=== PATIENT | male | born 1975 | race Caucasian/White ===

== ENCOUNTER 2018-03-05 16:40 | Inpatient (IN) ==
--- NOTE | 2018-03-05 16:59 | EKG Report ---
Test Performed on : 03/05/2018 4:46:43 PM Test Reason : chest pain Blood Pressure : / mmHG Vent. Rate : 083 BPM Atrial Rate : 083 BPM P-R Int : 116 ms QRS Dur : 090 ms QT Int : 366 ms P-R-T Axes : 063 057 056 degrees QTc Int : 430 ms Normal sinus rhythm. Normal ECG No previous ECGs available Unconfirmed Result
[2018-03-05 17:07] LABS: BASO# 0.04 X1000 (0.0-0.2); BASO% 0.6 % (0.0-0.8); EOS# 0.08 X1000 (0.0-0.7); EOS% 1.1 % (0.0-10.0); HEMATOCRIT 45.2 % (42.0-52.0); HEMOGLOBIN 15.8 g/dL (14.0-18.0); IMM GRAN# 0.01 X1000 (0.0-0.04); IMM GRAN% 0.1 % (0.0-0.5); LYMPH# 2.19 X1000 (1.2-3.4); LYMPH% 31.1 % (20.5-51.1); MCH 30.3 PG (27-31); MCV 86.6 FL (81-99); MONO% 9.9 % (1.7-9.3); MPV 11.3 FL (7.4-10.4); NEUT# 4.02 X1000 (1.4-6.5); NEUT% 57.2 % (42.2-75.2); PLT 258 X1000 (130-400); RBC 5.22 XMIL (4.7-6.1); RDW 13.1 % (11.5-14.5); WBC 7.04 X1000 (4.8-10.8)
[2018-03-05 17:20] LABS: AGAP 14; ALBUMIN 4.2 g/dL (3.5-5.0); ALKALINE PHOSPHATASE 79 U/L (32-122); BUN 10 mg/dL (8-22); CALCIUM 8.9 mg/dL (8.8-10.2); CHLORIDE 98 mmol/L (98-107); COSMO 276; CREATININE 0.8 mg/dL (0.7-1.2); ESTIMATED GFR > 60; GLUCOSE 127 mg/dL (70-104); GOT 17 U/L (10-34); GPT 20 U/L (10-44); SODIUM 138 mmol/L (136-145); TCO2 26 mmol/L (25-35); TOTAL PROTEIN 7.3 g/dL (6.3-8.3)
--- NOTE | 2018-03-05 17:20 | Diag Imaging Result Doc PS360 ---
CHEST-2 VIEWS - 03/05/2018 INDICATION: chest pain COMPARISON: None FINDINGS: Lungs are hyperexpanded suggesting COPD. There are calcified granulomas in hilar lymph nodes bilaterally. There is a small right pneumothorax at the lung apex. This measures about 1.8 cm, about 10-20%. IMPRESSION: Small right pneumothorax. This report was discussed with Dr. Davis on 03/05/2018 at 5:18 PM and was readback. Electronically signed by Bernard Walsh 03/05/2018 5:18 PM
--- NOTE | 2018-03-05 17:38 | ED EKG INTERP ---
This chart was entered by Mila Romero Scribe, acting as scribe for Vito Davis MD. EKG Interpretation - EKG Time of EKG reading by physician:: 16:47 EKG Read and Signed by:: Vito Davis EKG Interpretation (*Must complete 3 of following elements*): Normal Rate: 83 Rhythm: Normal sinus rhythm [place]: normal QRS: normal Attestation - Physician/ DWIGHT Attestation Patient care was provided by Advanced Practice Provider:: Yes Advanced Practice Provider:: [place] Green Advanced Practice Provider documentation review:: The Mid-level provider documentation, treatment plan and medical decision making was reviewed by the physician who agrees with all treatment and medical decision making by the MLP. The physician spent face to face time with patient:: No Advanced Practice Provider documentation review:: Supervising physician onsite and consulted in the evaluation and care of this patient. The physician did not have a face to face encounter with the patient. This chart was documented by the indicated scribe, (Mila Romero Scribe) and accurately reflects the services I performed and decisions made by me, Vito Davis MD, as attested by the provider's signature.
--- NOTE | 2018-03-05 17:42 | PROVIDER DOCUMENTATION ---
HPI-Respiratory General - General Chief Complaint: Chest Pain Stated Complaint: CHEST PAIN Time Seen by Provider: 03/05/18 17:08 Source: patient Allergies/Adverse Reactions: Patient Allergies Allergy/AdvReac Type Severity Reaction Status Date / Time No Known Allergies Allergy Verified 03/05/18 16:49 Home Medications: Home Medication List Medication Instructions Recorded Confirmed Last Taken Type NK [No Home Medications] 03/05/18 03/05/18 Unknown History - History of Present Illness-Resp Nature of Presenting Problem: pt is 42 yo WM w c/o sudden onset rt side chest pain radiating around to back with sudden onset after standing, pt has diminished lung sounds on rt side and describes pain as severe and worse with deep inspiration, pt O2 sat is 100 % on 2L per NC upon assessment, pt denies prior pneumothorax ro any other chronic medical problems, pt is a smoker w/ thin build Severity in ED: reports: moderate Onset/Duration: reports: 1-3 hours ago Timing: reports: still present Cough Quality/Degree: reports: no cough Episode Frequency: no prior episodes Current Respiratory Medication Therapy: Initiated none Modifying Factors: improves with: deep breath Associated Symptoms: reports: shortness of breath Similar Symptoms Previously?: No Recently seen or treated by another doctor?: No Review of Systems - Adult - REVIEW OF SYSTEMS - ADULT Constitutional: reports: no symptoms reported Eyes: reports: no symptoms reported Ears, Nose, Mouth & Throat: reports: other (congestion for past few days) Cardiovascular: reports: no symptoms reported Respiratory: reports: see HPI Gastrointestinal: reports: no symptoms reported Genitourinary: reports: no symptoms reported Musculoskeletal: reports: no symptoms reported Integumentary: reports: no symptoms reported Neurological: reports: no symptoms reported Psychiatric: reports: no symptoms reported Endocrine: reports: no symptoms reported Hematologic/Lymphatic: reports: no symptoms reported Allergic/Immunologic: reports: no symptoms reported All Other Systems: Reviewed and Negative Past History - Adult - PAST MEDICAL HISTORY-ADULT Review of Records: reports: Nursing Assessment Review, Medications Reviewed, Social history reviewed & non-contributory. 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 on dangers of tobacco.: Discussed manners to quit use, and f/u contacts for add'l counseling. Substance Use: none/never Living Situation: family Physical Exam-General - PHYSICAL EXAM-ADULT Initial Vital Signs Reviewed: Yes - CONSTITUTIONAL General Appearance: appears well, alert, moderate distress - EYES Eyes: PERRL/EOMI, pink conjunctivae. negative: anisocoria, photophobia, sclera injected, scleral icterus - HEAD, EARS, NOSE, MOUTH & THROAT HENMT: normocephalic/atraumatic, moist mucous membranes, normal ENT inspection - NECK Neck: non-tender, full range of motion, supple. negative: carotid bruit, C- spine tenderness - RESPIRATORY Respiratory: chest non-tender, pain on inspiration, other (diminished on rt side ) - CARDIOVASCULAR Cardiovascular: normal peripheral pulses, regular rate, rhythm, no edema, no gallop, no JVD, no murmur - GASTROINTESTINAL (ABDOMEN) Abdominal Exam: normal bowel sounds, non tender, soft. negative: hernia, mass, hepatomegaly - LYMPHATIC Lymphatic: no adenopathy - MUSCULOSKELETAL Back Exam: normal inspection, no CVA tenderness Extremity: normal range of motion, non-tender, normal gait, normal inspection, no pedal edema, no calf tenderness, normal capillary refill - SKIN Integumentary: normal color, normal turgor, warm/dry - NEUROLOGIC Neurologic: grossly normal, no motor/sensory deficits - PSYCHIATRIC Psych/Mental Status: normal mood/affect, normal thought content, normal thought process, oriented x 3 Progress - PLAN OF CARE/RESULTS Progress/Plan/Lab Results: Vital Signs - 8 hr 03/05/18 16:41 Temperature 98.2 F Pulse Rate 104 H Respiratory Rate 20 Blood Pressure 139/84 O2 Sat by Pulse Oximetry 97 Laboratory Results - last 24 hr 03/05/18 03/05/18 03/05/18 16:55 16:55 16:55 WBC 7.04 RBC 5.22 Hgb 15.8 Hct 45.2 MCV 86.6 MCH 30.3 MCHC 35.0 RDW Std Deviation 13.1 Plt Count 258 MPV 11.3 H Immature Gran % (Auto) 0.1 Neut % (Auto) 57.2 Lymph % (Auto) 31.1 [place] % (Auto) 9.9 H Eos % (Auto) 1.1 Baso % (Auto) 0.6 Immature Gran # (Auto) 0.01 Neut # (Auto) 4.02 Lymph # (Auto) 2.19 Howell # (Auto) 0.70 H Eos # (Auto) 0.08 Baso # (Auto) 0.04 Sodium Potassium Chloride Carbon Dioxide Anion Gap BUN Creatinine Estimated GFR/1.73 m2 BUN/Creatinine Ratio Glucose Calculated Osmolality Calcium Total Bilirubin AST ALT Alkaline Phosphatase Creatine Kinase 73 Troponin T < 0.010 Total Protein Albumin Globulin Albumin/Globulin Ratio 03/05/18 16:55 WBC RBC Hgb Hct MCV MCH MCHC RDW Std Deviation Plt Count MPV Immature Gran % (Auto) Neut % (Auto) Lymph % (Auto) [place] % (Auto) Eos % (Auto) Baso % (Auto) Immature Gran # (Auto) Neut # (Auto) Lymph # (Auto) [place]ell # (Auto) Eos # (Auto) Baso # (Auto) Sodium 138 Potassium 4.0 Chloride 98 Carbon Dioxide 26 Anion Gap 14 BUN 10 Creatinine 0.8 Estimated GFR/1.73 m2 > 60 BUN/Creatinine Ratio 13 Glucose 127 H Calculated Osmolality 276 Calcium 8.9 Total Bilirubin 0.90 AST 17 ALT 20 Alkaline Phosphatase 79 Creatine Kinase Troponin T Total Protein 7.3 Albumin 4.2 Globulin 3.0 Albumin/Globulin Ratio 1.0 Orders Category Date Time Status Cardiac Monitoring DIRECTED Care 03/05/18 16:50 Active If abnormal EKG, order: NOW Care 03/05/18 16:49 Active Saline Loc NOW Care 03/05/18 16:51 Active CHEST-2 VIEWS [RAD] Stat Exams 03/05/18 16:49 Completed CBC WITH DIFF [HEME] Stat Lab 03/05/18 16:55 Completed CK PROFILE [SP CHEM] Stat Lab 03/05/18 16:55 Completed CMP [COMPREHENSIVE METABOLIC PANEL] [CHEM] Stat Lab 03/05/18 16:55 Completed TROPONIN T Stat Lab 03/05/18 16:55 Completed CP/Palp <45 No Known Cardiac Hx Stat Oth 03/05/18 16:49 Ordered EKG [EKG] Stat Ther 03/05/18 16:49 Draft discussed with patient the POC including admission to floor with Dr. avalos consult, pt agreed with POC and verbalized understanding Result Diagrams: 03/05/18 16:55 03/05/18 16:55 - XRAY 1 XRAY Study: Chest Impression: Abnormal Comparison with other Films: no prior study XRAY Interpretation: rt side pnumothorax - CONSULTS/PCP/HOSPITALIST Notification #1 *Consult/PCP/Hospitalist*: Dr. Olea Time Discussed: 17:46 Reason/Comments: admit for surgical consult for pneumothorax Consult Disposition: Admit Departure - Departure Date of Disposition Decision: 03/05/18 Time of Disposition Decision: 17:46 DIAGNOSIS: Pneumothorax Disposition: ADMITTED INPATIENT 09 Certified Medical Emergency: Emergent Condition: Stable - Critical Care Note This patient required my direct & personal management of CC.: No Attestation - Physician/ DWIGHT Attestation Patient care was provided by Advanced Practice Provider:: Yes Advanced Practice Provider:: Cam[place] Green Advanced Practice Provider documentation review:: The Mid-level provider documentation, treatment plan and medical decision making was reviewed by the physician who agrees with all treatment and medical decision making by the MLP. The physician spent face to face time with patient:: Yes (Dr flores assessed patient as well as myself) Advanced Practice Provider documentation review:: Supervising physician onsite and consulted in the evaluation and care of this patient. The physician did have a face to face encounter with the patient.
[2018-03-05] MEDS ORDERED: MORPHINE IV ONE ×2 (17:48→20:33)
[2018-03-05] MEDS ORDERED: ZOFRAN IV ONE (17:48)
[2018-03-05] MEDS ORDERED: ZOFRAN IV PRN (18:49)
--- NOTE | 2018-03-05 20:57 | Diag Imaging Result Doc PS360 ---
CHEST-PORTABLE - 03/05/2018 8:39 PM INDICATION: s/p small chest catheter placement COMPARISON: 5:13 PM FINDINGS: There is a small bore chest tube on the right. There is a persistent small right pneumothorax of about 15%. This appears identical to prior. No infiltrates. IMPRESSION: Right chest tube in good position. Persistent small right pneumothorax. Electronically signed by Bernard Walsh 03/05/2018 8:55 PM
--- NOTE | 2018-03-05 22:50 | HISTORY AND PHYSICAL ---
CHIEF COMPLAINT: Chest pain. HISTORY OF PRESENT ILLNESS: This is a 42-year-old male who arrived to our emergency department with acute onset of severe right-sided chest pain radiating into his back without any known trauma, coughing episodes, vomiting or other instigating factors. His pain is worse with inspiration and relieved some with morphine. He feels somewhat short of breath. PAST MEDICAL HISTORY: He is a smoker. 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 PAST SURGICAL HISTORY: Right forearm fracture repair. HOME MEDICATIONS: None. ALLERGIES: No known drug allergies. SOCIAL HISTORY: He smokes a pack per day for 30 years out. No alcohol use or illicit drug use. FAMILY HISTORY: Reviewed and noncontributory. REVIEW OF SYSTEMS: Ten systems reviewed and negative except as noted above. PHYSICAL EXAMINATION: VITAL SIGNS: Temperature 97.8 degrees, pulse 67, respirations 21, blood pressure 115/89, O2 saturation 100%. GENERAL: A thin male who looks somewhat older than his stated age who appears uncomfortable. HEENT: Normocephalic, atraumatic. Extraocular muscles intact. Pupils equal, round, reactive to light. Sclerae anicteric. Moist mucous membranes. NECK: Supple. No thyromegaly. CV: Regular rate and rhythm. RESPIRATORY: Decreased breath sounds with some wheezing more so on the right than the left. He is tachypneic and taking short shallow breaths and wincing with every breath. GI: Soft, nontender, nondistended. No organomegaly or mass. EXTREMITIES: No clubbing, cyanosis, or edema. SKIN: Warm and dry. No rash. LABORATORY: CBC and complete metabolic profile reviewed and unremarkable. IMAGING: A chest x-ray was reviewed, which shows a 10 to 20% pneumothorax of the right upper lung and he is hyperexpanded suggesting COPD. There are some calcified granulomas in the hilar lymph nodes bilaterally. ASSESSMENT/PLAN: 42-year-old male with acute onset spontaneous right pneumothorax. He is short of breath and having significant chest pain. We will go ahead and place a small bore chest catheter. I discussed the risks and benefits with him including bleeding, infection, injury to the lung, ineffective treatment requiring further procedures and other imponderables. He understands and agrees to proceed. cc: Lb Olea MD
--- NOTE | 2018-03-05 22:52 | OPERATIVE NOTE ---
PROCEDURE DATE: 03/05/2018 PREOP DIAGNOSIS: 1. Spontaneous right pneumothorax. 2. Chronic obstructive pulmonary disease. 3. Tobacco abuse. POSTOP DIAGNOSIS: 1. Spontaneous right pneumothorax. 2. Chronic obstructive pulmonary disease. 3. Tobacco abuse. PROCEDURE: Insertion of right chest tube/catheter. SURGEON: Lb Olea MD. ESTIMATED BLOOD LOSS: Scant. COMPLICATIONS: None apparent. TECHNIQUE: The patient was kept in his hospital bed and rolled to his right side. His right lateral chest was prepped and draped in the usual sterile fashion. 1% lidocaine was used to anesthetize the skin, subcutaneous tissues, and intramuscular tissues and pleural space. This was done at about the nipple line in the anterior axillary line. A small johnna was made 11 blade and the pneumothorax catheter was then directed over the needle just superior to the rib into the pleural space. There was some withdrawal of air into the syringe. I then advanced the catheter over the needle into the pleural space. The catheter was anchored to the skin with silk sutures attached to the chest drainage system and a sterile dressing was applied. There were no apparent complications. cc: Lb Olea MD
[2018-03-05] MEDS: MORPHINE IV PRN (23:00)
[2018-03-06] MEDS: MORPHINE IV PRN ×7 (02:58→20:27)
--- NOTE | 2018-03-06 07:32 | Diag Imaging Result Doc PS360 ---
CHEST-PORTABLE - 03/06/2018 INDICATION: pneumothorax COMPARISON: 03/05/2018 FINDINGS: Stable small bore right pleural catheter. There has been decrease in the right apical pneumothorax which now measures 1 cm, about 10%. No new abnormalities. IMPRESSION: Decrease in size of the small right pneumothorax. Electronically signed by Bernard Walsh 03/06/2018 7:30 AM
--- NOTE | 2018-03-06 14:22 | GENERAL SURGERY PROGRESS NOTE ---
DATE: 03/06/2018 SUBJECTIVE: The patient is doing a little better. Less chest pain, shortness of breath. OBJECTIVE: He is afebrile. Vital signs are stable.General: He is awake, alert, and oriented x4. No acute distress. Respiratory: Bilateral equal breath sounds. No increased work of breathing. The chest tube is intact. No air leak seen. IMAGING: Chest x-ray shows decreasing size of apical pneumothorax, now about 10%. ASSESSMENT/PLAN: A 42-year-old male with spontaneous right pneumothorax. He is status post chest catheter placement. The pneumothorax is improving. We will continue the oxygen via nasal cannula and check a CT scan of the chest tomorrow to further assess the etiology and resolution of this pneumothorax. cc: Lb Olea MD
[2018-03-06] MEDS: NORCO-10 PO PRN (23:14)
[2018-03-07] MEDS: MORPHINE IV PRN ×3 (03:12→11:14)
--- NOTE | 2018-03-07 10:52 | Diag Imaging Result Doc PS360 ---
EXAM: CT THORAX W/WO CONTRAST - 03/07/2018 HISTORY: spontaneous pneumothorax TECHNIQUE: CT thorax without with contrast. Images are obtained prior to and following intravenous contrast administration. COMPARISON: 03/06/2018 and 03/05/2018 chest radiographs FINDINGS: There are emphysematous changes which are most prominent at the bilateral upper lobes. There are multiple associated small to medium sized bulla which are most numerous at the superior medial left upper lobe. There is a small pneumothorax at the right apex. There is a small caliber right chest tube with its tip at the lateral mid right thorax. While the chest tube appears to extend through the lower lateral right upper lobe, is possible that the tube may be extending along intersegmental fissure. There is a small amount of hazy infiltrate near the chest tube. There is no dense consolidation or pleural effusion identified. There is no lung mass identified. There is mild dependent atelectasis of the bilateral lung bases. There are no abnormally enlarged hilar mediastinal lymph nodes identified. IMPRESSION: Emphysematous changes which are most prominent at the bilateral upper lobes. Small pneumothorax at right apex. Right chest tube in place as detailed above. This exam was performed using automated exposure control, adjustment of mA or kV according to patient size, and/or use of iterative reconstruction technique. Electronically signed by Victoriano Robb 03/07/2018 10:50 AM
[2018-03-07] MEDS: NORCO-10 PO PRN ×2 (12:20→18:29)
[2018-03-07 12:55] VITALS: BP 114/68
--- NOTE | 2018-03-07 18:26 | Diag Imaging Result Doc PS360 ---
EXAM: CHEST-PORTABLE - 03/07/2018 HISTORY: pneumothorax TECHNIQUE: Portable chest COMPARISON: 03/06/2018 FINDINGS: Heart size is normal. Right chest tube remains in place with its tip at the lateral mid right chest. There is a small pneumothorax at the right apex which appears slightly larger compared to prior. There is no consolidation or pneumothorax identified. IMPRESSION: Small pneumothorax at right apex, slightly larger compared to prior. Electronically signed by Victoriano Robb 03/07/2018 6:23 PM
[2018-03-07] MEDS ORDERED: BENADRYL PO ONE (19:39)
--- NOTE | 2018-03-08 01:23 | GENERAL SURGERY PROGRESS NOTE ---
DATE: 03/07/2018 SUBJECTIVE: The patient is feeling well. No chest pain or shortness of breath. OBJECTIVE: Vital Signs: He is afebrile. Vital signs are stable. General: He is awake, alert, and oriented x3. No acute distress. Chest: Bilateral breath sounds. No work of breathing. IMAGING: CT of the chest this morning showed emphysematous changes, but no mass. There was a small apical right pneumothorax. ASSESSMENT/PLAN: The patient is a 42-year-old male with spontaneous right pneumothorax secondary to emphysema. It is improved after chest tube placement, we have clamped it actually this afternoon for a number of hours. A repeat chest x-ray this afternoon shows a slight change but symptomatically he looks fine, and he wanted to go home so I went ahead and removed the chest tube at the bedside, and instructed him that if he had any recurrent chest pain or shortness of breath he would follow up immediately in the emergency room and he understood and agreed, and he only lives 5 minutes away. cc: Lb Olea MD
== END 2018-03-07 21:25 | disposition home or self-care (01) | DRG 201 ==
LOC: P.ED 16:40 → P.MEDSURG 18:43
PROVIDERS: ADMIT Surgery; ATTEND Surgery
CPT/HCPCS: 71010; 71020; 71045; 71046; 71270; 80053; 80176; 82550; 84484; 85025; 93005; 94760; 94761; 96374; 96375; 99285; A9270; J2270; J2405; Q9967